=== PATIENT | female | born 1995 | race African-American/Black ===

== ENCOUNTER 2023-04-02 15:06 | Emergency (ER) | payer OTHER, SELFPAY ==
[2023-04-02 15:42] VITALS: BP 151/67; PULSE 60; RESP 20; TEMP 36.6; O2SAT 100
--- NOTE | 2023-04-02 18:17 | ED.SKABFB ---
HPI - Skin/Abscess/Foreign Bdy General Chief complaint: Skin/Abscess/Foreign Body Stated complaint: possible spider bite left arm Time Seen by Provider: 04/02/23 17:55 Source: patient Mode of arrival: ambulatory Limitations: no limitations History of Present Illness HPI narrative: This is a 28-year-old female that presents to the emergency department for a possible insect bite to the left arm. Reports a couple of days ago she felt an insect bite or sting her. She has had pain, redness and swelling of the area since. Also reports some mild itching. She has been applying [id number] anti-itch creams with little relief. Denies fevers or drainage. Review of Systems Review of Systems: CONSTITUTIONAL: Denies fever SKIN: Reports redness and itching. All systems reviewed & are unremarkable except as noted in HPI and below PMFSH Past Medical History Medical History (Updated 04/02/23 @ 18:24 by Armida Srinivasan PA-C) No active medical problems Social History Social History (Updated 04/02/23 @ 18:24 by Armida Srinivasan PA-C) Substance use: never Exam Narrative: GENERAL: Well-appearing, well-nourished, and in no acute distress. HEAD: Normocephalic, atraumatic. EYES: EOMI. EXTREMITIES: Normal range of motion. Left upper arm with mild to moderate circular area of erythema and edema. No lymphangitic streaking or fluctuance. Normal radial pulse. Normal sensation SKIN: Warm, dry, no rash. NEURO: No focal deficits. Alert and oriented x3. PSYCH: Normal mood and affect Course Course Emergency Course: Patient agrees with plan of care Vital Signs Vital signs: Vital Signs Temperature 97.9 F 04/02/23 15:42 Pulse Rate 60 04/02/23 15:42 Respiratory Rate 20 04/02/23 15:42 Blood Pressure 151/67 H 04/02/23 15:42 Pulse Oximetry 100 04/02/23 15:42 Oxygen Delivery Room Air 04/02/23 15:42 Temperature 97.9 F 04/02/23 15:42 Pulse Rate 60 04/02/23 15:42 Respiratory Rate 20 04/02/23 15:42 Blood Pressure 151/67 H 04/02/23 15:42 Pulse Oximetry 100 04/02/23 15:42 Oxygen Delivery Room Air 04/02/23 15:42 MDM - Skin/Abscess/Foreign Bdy MDM Narrative Medical decision making narrative: Patient presents to the emergency department for a possible insect bite or sting. There is mild to moderate redness and swelling surrounding. Likely allergic type reaction. Instructed on use of antihistamines. Will be started on an oral antibiotic as well if there is possibly a secondary bacterial infection. She is afebrile and nontoxic-appearing. There is no lymphangitic streaking or fluctuance. Patient in agreement with plan. She is to follow-up with primary provider. She was given warnings to return to the ER Differential Diagnosis Differential diagnosis: Likely abscess of skin or subcutaneous tissue, urticaria, cellulitis, eczema and insect bites Critical Care Time Critical Care Time Critical Care Time: No Discharge Plan Discharge Clinical Impression: Bite or sting by insect Patient Disposition: Home, Self-Care Condition: Stable Instructions: Cellulitis (ED), Insect Bite or Sting (ED) Additional Instructions: Return to the emergency department if you experience fever, redness and swelling of your wound, abnormal drainage from your wound, or any other symptoms that are concerning to you Take a Zyrtec and Claritin daily. You may apply [id number] Benadryl cream or hydrocortisone cream to the area. Take oral antibiotic as prescribed Follow-up with your primary care doctor Prescriptions: New cephalexin 500 mg capsule 500 mg PO Q6H 7 Days Qty: 28 0RF Follow-up/Referrals: PHYSICIAN NOT ON STAFF,NONSTAFF [Primary Care Provider] - 1 Week
== END 2023-04-02 18:30 | disposition home or self-care (01) ==
LOC: ANHED 18:19
PROVIDERS: Emergency Provider Physician Assistant
DX: S40.862A Insect bite (nonvenomous) of left upper arm, initial encounter (principal); W57.XXXA Bitten or stung by nonvenomous insect and other nonvenomous arthropods, initial encounter
CPT/HCPCS: 99283